=== PATIENT | male | born 1975 | race Caucasian/White ===

== ENCOUNTER 2022-02-19 09:54 | Emergency (ER) | payer OTHER ==
[~2022-02-19] VITALS: Ht 172.7 cm; Wt 79.4 kg
[2022-02-19] MEDS ORDERED: ADVAIR 500-501 EACH INH (10:11)
[2022-02-19] MEDS ORDERED: SINGULAIR10 MG PO (10:11)
[2022-02-19] MEDS ORDERED: VENTOLIN HFA18 GM INH (10:11)
[2022-02-19] MEDS ORDERED: CEPHALEXIN500 M1 PO (10:54)
== END 2022-02-19 11:30 | disposition home or self-care (01) ==
LOC: ED 09:54
DX: S91.332A Puncture wound without foreign body, left foot, initial encounter (principal); J45.909 Unspecified asthma, uncomplicated; Z88.2 Allergy status to sulfonamides; Z79.899 Other long term (current) drug therapy; Z79.51 Long term (current) use of inhaled steroids; W45.0XXA Nail entering through skin, initial encounter; Z23 Encounter for immunization
CPT/HCPCS: 90471; 90715; 99283-25